=== PATIENT | female | born 1990 | race Hispanic/Latino ===

== ENCOUNTER → 2022-06-16 12:15 | Outpatient (CLI) | payer OTHER, SELFPAY ==
[2022-06-16 13:36] LABS: Add Manual Diff / Slide Review NO; Basophils Absolute Auto 0 /uL (0-100); Basophils Percent Auto 0.2 % (0-2); Eosinophils Absolute Auto 0 /uL (0-450); Eosinophils Percent Auto 0.4 % (2-4); Hematocrit 37.2 % (36-46); Hemoglobin 13.1 g/dL (12.0-16.0); Lymphocytes Absolute Auto 1900 /uL (1100-4500); Lymphocytes Percent Auto 22.4 % (25-40); Mean Corpuscular HGB Conc 35.2 % (30-36); Mean Corpuscular Hemoglobin 29.8 PG (26-34); Mean Corpuscular Volume 84.7 fL (80-100); Monocytes Absolute Auto 500 /uL (0-900); Monocytes Percent Auto 5.5 % (3-14); Neutrophils Absolute Auto 6100 /uL (1500-7000); Neutrophils Percent Auto 71.5 % (50-75); Platelet Count 290 X10^3/uL (150-400); Red Blood Cell Count 4.39 X10^6/uL (4.0-5.2); Red Cell Distribution Width 13.8 % (11.6-14.8); White Blood Cell Count 8.5 X10^3/uL (4.5-11.0)
[2022-06-16 13:40] LABS: Appearance Urine UA CLEAR; Bilirubin Urine UA NEGATIVE (NEGATIVE); Color Urine UA YELLOW; Glucose Urine UA NEGATIVE (Negative); Ketones Urine UA NEGATIVE (NEGATIVE); Leukocyte Esterase Urine UA 1+ (NEGATIVE); Nitrite Urine UA NEGATIVE (Negative); Occult Blood Urine UA NEGATIVE (Negative); Protein Urine UA NEGATIVE (Negative); Specific Gravity Urine UA <=1.005 (1.000-1.035); Urobilinogen Urine UA 0.2 E.U./dL (0.2)
[2022-06-16 13:48] LABS: Bacteria Urine None Seen; Culture Indicated Urine Cult Not Indicated; RBC Urine None Seen (0-5/HPF); Squamous Epithelial Cell Urine 5-10 /HPF (0-5/HPF); WBC Urine 1-5/HPF (0-5/HPF)
[2022-06-17 06:18] LABS: Varicella IgG Antibody 1357 index (Immune >165)
[2022-06-17 07:09] LABS: RPR Screen Non Reactive (Non Reactive)
[2022-06-17 16:09] LABS: Hepatitis B Surface Antigen NEGATIVE s/c (NEGATIVE)
[2022-06-17 16:28] LABS: HIV 1 & 2 Ab/Ag 4th Gen Combo NEGATIVE (NEGATIVE); Hep C Virus Ab w/Reflex Quant NEGATIVE s/c (NEGATIVE)
== END ==
PROVIDERS: Referring Provider Obstetrics & Gynecology; Visit Provider Obstetrics & Gynecology
DX: Z34.01 Encounter for supervision of normal first pregnancy, first trimester (principal); Z36.0 Encounter for antenatal screening for chromosomal anomalies
CPT/HCPCS: 36415; 80055; 81003; 81015; 86787; 86803; 86850; 86900; 86901; 87086; 87147; 87389

== ENCOUNTER → 2022-07-27 14:08 | Outpatient (CLI) | payer OTHER, SELFPAY ==
[2022-07-29 20:52] LABS: AFP Value 26.6 ng/mL (.); Gest Age on Col Date 16.9 weeks (.); Insulin Dep Diabetes No (.); OSBR Risk 1IN 10000 (.); Results Report (.); Test Results *Screen Negative* (.)
== END ==
PROVIDERS: Referring Provider Obstetrics & Gynecology; Visit Provider Obstetrics & Gynecology
DX: Z34.02 Encounter for supervision of normal first pregnancy, second trimester (principal); Z3A.16 16 weeks gestation of pregnancy
CPT/HCPCS: 36415; 82105

== ENCOUNTER → 2022-08-19 08:55 | Outpatient (CLI) | payer OTHER, SELFPAY ==
--- NOTE | 2022-08-19 08:55 | DI.US.S_ITS ---
PROCEDURE: US OB >= 14 WEEKS FETUS INDICATIONS: ANATOMY OUTSIDE/PRIOR DATING DATA: Last menstrual period (LMP): Not available. LMP-based estimated date of delivery (LALIT): Not of the. First dating scan (date and location): 05/25/2022. Estimated date of delivery (LALIT) from first dating scan: 01/06/2023. The calculations are made using the working LALIT of 01/06/2023. TECHNIQUE: Real-time scanning was performed of the fetus, with image documentation and biometric measurements. Endovaginal scanning: Not performed COMPARISON: [facility], , OB <= 14 WEEKS FETUS, 06/29/2022, 12:12. [facility], , OB <= 14 WEEKS FETUS, 05/25/2022, 11:40. FINDINGS: General: A single living intrauterine gestation is present. Presentation: Vertex. Placenta: Placental position is posterior , without previa. Amniotic fluid index: 17.0 cm, normal range is 5-24 cm. Single deepest vertical pocket is 5.4 cm. heart rate: 145 beats per minute. Maternal cervical canal: 4 point cm long. Normal lower limit is 2.5 cm. biometrics: Biparietal diameter: 19 weeks 5 days Head circumference: 19 weeks 4 days Abdominal circumference: 20 weeks 5 days Femur length: 20 weeks 3 days Clinically estimated gestational age: 20 weeks 0 day Composite gestational age from present scan: 20 weeks 1 day Estimated weight and percentile: 355 g; 72% Anatomic survey: Neuro: Ventricles are non-dilated at less than 10 mm. Cisterna magna is normal at 3-11 mm. Cerebellum is normal in size and morphology. Nuchal skin fold: Normal at less than 6 mm between 14-21 weeks gestational age. Face: Nose and lips, facial profile are normal. Spine: No evidence for spina bifida. Heart: 4-chambered heart is present, with normal ventricular outflow tracts. Diaphragm: Diaphragm is intact. Stomach: Left-sided stomach is present. Kidneys: No hydronephrosis. Normal is less than 5 mm in 2nd trimester, less than 7 mm in 3rd trimester. Cord: 3-vessel cord has orthotopic insertion. Bladder: Normal in size. Extremities: All 4 extremities identified. IMPRESSION: 1. A single living intrauterine gestation with appropriate interval growth. 2. Normal anatomic survey. We strive to produce accurate, complete, and clear reports of imaging services. To assist us in improving patient care, this report was composed using standard report templates and voice recognition software. Therefore, it may contain abnormal punctuation, insertions and/or omissions. Occasional wrong-word or sound-alike substitutions may occur. Though we review the report and make efforts to correct it, we do recommend that the report be read carefully in proper context to recognize any text inaccuracies. Dictated by: Trina Wang M.D. on 08/19/2022 at 12:37 Approved by: Trina Wang M.D. on 08/19/2022 at 13:26
== END ==
PROVIDERS: Referring Provider Obstetrics & Gynecology; Visit Provider Obstetrics & Gynecology
DX: Z34.02 Encounter for supervision of normal first pregnancy, second trimester (principal); Z3A.20 20 weeks gestation of pregnancy
CPT/HCPCS: 76811

== ENCOUNTER → 2022-10-01 09:17 | Outpatient (CLI) | payer OTHER, SELFPAY ==
[2022-10-01 12:09] LABS: Hematocrit 34.2 % (36-46); Hemoglobin 11.6 g/dL (12.0-16.0)
[2022-10-01 12:17] LABS: GTT (PREG) 1 Hour PP 50gm Dose 99 mg/dL (76-139)
== END ==
PROVIDERS: Referring Provider Obstetrics & Gynecology; Visit Provider Obstetrics & Gynecology
DX: Z34.02 Encounter for supervision of normal first pregnancy, second trimester (principal); Z3A.26 26 weeks gestation of pregnancy
CPT/HCPCS: 36415; 82950; 85014; 85018

== ENCOUNTER 2022-11-09 14:38 | Outpatient (CLI) | payer OTHER, SELFPAY ==
--- NOTE | 2022-11-09 15:29 | PM.OBTRLD ---
Visit Information Visit Information Date of evaluation: 11/09/22 Primary OB Provider: Ayesha Buckley On-call OB Provider: Gayatri Thomas Comments/Additional reasons for admission: 32yo at 31w5d here for decreased movement and vaginal bleeding. Pt reports single episode of pink tinging on her tissue after wiping when using the restroom. She denies any cramping/contractions, LOF. She also reports feeling her baby move less often in the past 24hrs. [facility] Medical History (Updated 11/10/22 @ 10:21 by Gayatri Thomas MD) Healthy adult Shingles Surgical History (Updated 06/19/22 @ 19:48 by Dixie Wilson) Anesthesia [place] teeth extracted (~01/2014) Family History (Updated 06/19/22 @ 19:51 by Dixie Wilson) Grandmother Ovarian cancer Grandmother Hypertension Stroke Grandfather Hypertension Diabetes mellitus Father Borderline hypertension Mother History of cholecystectomy Sister History of cholecystectomy Social History marital status: number of children: 0 household members: spouse lives independently: Yes housing: house pets and animals: Yes (1 small dog) education level: college occupational status: student current occupational exposures/hazards: No special dixie needs: No travel history: recent seatbelt use: always water heater temp set < 120 deg: No (will check and adjust) working smoke detector in home: Yes fire extinguisher in home: Yes carbon monox detector in home: Yes firearms in home: Yes firearms unloaded and locked: Yes do you feel safe at home: Yes Smoking Status: Never smoker second hand exposure: No alcohol intake: former substance use type: does not use during the past year weight has: increased > 10 lbs well-balanced diet: daily or most days daily servings fruits/ve-4 caffeine: Yes (aware of 200mg limit) Type(s) of exercise: walking frequency: 3-4 times per week Evaluation Evaluation Baseline heart rate: 140 Variability: Moderate (11-25) monitor accelerations: Present Monitor Decelerations: Absent Cervical dilation (cm): 0 Cervical effacement (%): 0 Comments: Very small intermittent and irregular contractions, palpating mild and not felt by patient Diagnosis, Plan/Disposition Final Diagnosis (1) Decreased movement: Status: Acute Plan/Disposition Plan: 32 yo at 31w5d here for decreased movement and single episode of light vaginal bleeding. She did use the restroom while in L&D without any blood present. Nursing had given report of > 35wks when presented to this provider, and so cervix was checked by nursing and was closed. No evidence of ongoing active bleeding, therefore ultrasound not obtained. NST reactive. No significant contractions on monitoring or palpated. Pt is stable of d/c home. OB Disposition: home
== END 2022-11-09 15:41 | disposition home or self-care (01) ==
LOC: LABOR 15:40 → OB 11-11 13:49
PROVIDERS: Referring Provider Obstetrics & Gynecology; Visit Provider Obstetrics & Gynecology
DX: O36.8130 Decreased fetal movements, third trimester, not applicable or unspecified (principal); Z3A.31 31 weeks gestation of pregnancy
CPT/HCPCS: 59025; G0378; G0379

== ENCOUNTER 2023-01-04 10:28 | Outpatient (CLI) | payer OTHER, SELFPAY | END 2023-01-04 11:13 | disposition home or self-care (01) | LOC: LABOR 10:47 → OB 01-10 06:05 | PROVIDERS: Referring Provider Obstetrics & Gynecology; Visit Provider Obstetrics & Gynecology | DX: Z34.03 Encounter for supervision of normal first pregnancy, third trimester (principal); Z3A.39 39 weeks gestation of pregnancy | CPT/HCPCS: 59025; G0378; G0379 ==

== ENCOUNTER 2023-01-06 20:25 | Outpatient (CLI) | payer OTHER, SELFPAY ==
[2023-01-06] MEDS: MORPHINE 4 MG/ML INJ IM (21:35)
== END 2023-01-06 21:35 | disposition home or self-care (01) ==
LOC: LABOR 21:37 → OB 02-07 13:02
PROVIDERS: Referring Provider Obstetrics & Gynecology; Visit Provider Obstetrics & Gynecology
DX: O48.0 Post-term pregnancy (principal); Z3A.40 40 weeks gestation of pregnancy
CPT/HCPCS: 59050; 84112; 96372; G0378; G0379; J2270

== ENCOUNTER 2023-01-07 06:33 | Inpatient (IN) | payer OTHER, SELFPAY ==
[2023-01-07 08:48] LABS: Add Manual Diff / Slide Review NO; Basophils Absolute Auto 0 /uL (0-100); Basophils Percent Auto 0.1 % (0-2); Eosinophils Absolute Auto 0 /uL (0-450); Eosinophils Percent Auto 0.1 % (2-4); Hematocrit 36.1 % (36-46); Hemoglobin 12.2 g/dL (12.0-16.0); Lymphocytes Absolute Auto 1400 /uL (1100-4500); Lymphocytes Percent Auto 7.5 % (25-40); Mean Corpuscular HGB Conc 33.7 % (30-36); Mean Corpuscular Hemoglobin 28.1 PG (26-34); Mean Corpuscular Volume 83.3 fL (80-100); Monocytes Absolute Auto 700 /uL (0-900); Monocytes Percent Auto 3.9 % (3-14); Neutrophils Absolute Auto 16400 /uL (1500-7000); Neutrophils Percent Auto 88.4 % (50-75); Platelet Count 276 X10^3/uL (150-400); Red Blood Cell Count 4.33 X10^6/uL (4.0-5.2); Red Cell Distribution Width 14.6 % (11.6-14.8); White Blood Cell Count 18.5 X10^3/uL (4.5-11.0)
[2023-01-07] MEDS: LACTATED RINGERS 1,000 ML 100 ML IV ×2 (08:48→14:00)
[2023-01-07] MEDS: AMPICILLIN 2,000 MG in SODIUM CHLORIDE 0.9% 100 ML 200 MG IV (08:48)
[2023-01-07] MEDS: FENT 2MCG/ML BUPIV 0.125% EPI 200 MCG/100 ML PLAST..BAG 8 MCG EPIDURAL ×2 (09:20→16:30)
[2023-01-07] MEDS: OXYTOCIN PREMIX 30 UNIT/500 ML PLAST..BAG IV (10:27)
[2023-01-07 10:51] VITALS: BP 114/78
[2023-01-07] MEDS: AMPICILLIN 1,000 MG in SODIUM CHLORIDE 0.9% 100 ML 200 MG IV ×3 (12:35→20:33)
--- NOTE | 2023-01-07 12:35 | PM.OBHP.1 ---
OB HPI Date/Time Date of admission: 01/07/23 History of Present Condition Chief complaint: Labor : 1 Para: 0 Estimated Date of Delivery: 01/06/23 Estimated Gestational Age (weeks): 40.1 Narrative: Olga Ahumada is a 32 year old female who presents in prodromal labor. Was seen on 01/05/2023 and 1.5/-2. arrived on L+D with c/o contractions which are increasing in frequency / intensity +FM no pre-e symptoms no LOF or VB/VD +contraction pain History of Present care: good care Dating criteria: LMP confirmed by 1st trimester US Obstetrical complications: none Medical complications: none Preadmission Labs Blood type: O (+) positive -: Antibody screen: negative, Cystic fibrosis screen: negative, GBS status: positive, HBsAG: negative, HIV: negative, HSV 1: unknown, HSV 2: unknown and RPR/VDLR: negative -: Chlamydia screen: not detected and Gonorrhea screen: not detected -: Rubella: immune and Varicella: immune HCT: 37.2 HCAB: negative Cell-free DNA: low risk, female Urine: WNL 1 hr GTT: 99 Prior (ies) History: G1 Evaluation Evaluation Variability: Average (6-10) monitor accelerations: Present Monitor Decelerations: Absent Status: Category l Dilation (cm): 4 Effacement (%): 100 Dilation: 3-4 cm station: -1 Position of cervix: mid Consistency: soft [facility] Medical History (Updated 01/04/23 @ 11:12 by Ayesha Buckley MD) Healthy adult Shingles Surgical History (Updated 06/19/22 @ 19:48 by Dixie Wilson) Anesthesia [place] teeth extracted (~01/2014) Family History (Updated 06/19/22 @ 19:51 by Dixie Wilson) Grandmother Ovarian cancer Grandmother Hypertension Stroke Grandfather Hypertension Diabetes mellitus Father Borderline hypertension Mother History of cholecystectomy Sister History of cholecystectomy Social History marital status: number of children: 0 household members: spouse lives independently: Yes housing: house pets and animals: Yes (1 small dog) education level: college occupational status: student current occupational exposures/hazards: No special dixie needs: No travel history: recent seatbelt use: always water heater temp set < 120 deg: No (will check and adjust) working smoke detector in home: Yes fire extinguisher in home: Yes carbon monox detector in home: Yes firearms in home: Yes firearms unloaded and locked: Yes do you feel safe at home: Yes Smoking Status: Never smoker second hand exposure: No alcohol intake: former substance use type: does not use during the past year weight has: increased > 10 lbs well-balanced diet: daily or most days daily servings fruits/ve-4 caffeine: Yes (aware of 200mg limit) Type(s) of exercise: walking frequency: 3-4 times per week Meds Home Medications and Allergies Home Medications Medication Instructions Recorded Confirmed Type cholecalciferol (vitamin D3) 50 50 mcg PO DAILY 05/18/22 01/07/23 History mcg (2,000 unit) capsule cyanocobalamin (vitamin B-12) 1,000 mcg PO DAILY 05/18/22 01/07/23 History 1,000 mcg capsule prenat.vits,carlos,[id number] 1 tab PO DAILY 05/18/22 01/07/23 History Allergies Allergy/AdvReac Type Severity Reaction Status Date / Time No Known Allergies Allergy Verified 01/06/23 13:00 Review of Systems Review of Systems ROS: Yes All systems reviewed with the patient and are negative except as otherwise documented Constitutional Constitutional: Reports as per HPI Cardiovascular Cardiovascular: Reports as per HPI Gastrointestinal Gastrointestinal: Reports as per HPI Genitourinary Genitourinary: Reports system reviewed and no additional complaints, except as documented OB Exam Narrative Exam Narrative: 4/100/-2, soft, midposition HENMT Head: normal to inspection Resp Effort & Inspection: normal respiratory effort and able to speak in complete sentences Cardio Rate: regular rate Rhythm: regular rhythm Extremities Lower extremity: Yes normal to inspection GI Inspection: normal to inspection OB/External & Speculum: deferred Presentation: vertex Estimated Weight (lbs): 7 Objective Labs 01/07/23 08:30 Labs: Laboratory Results - last 24 hr 01/07/23 01/07/23 08:30 08:30 WBC 18.5 H RBC 4.33 Hgb 12.2 Hct 36.1 MCV 83.3 MCH 28.1 MCHC 33.7 RDW 14.6 Plt Count 276 Neut % (Auto) 88.4 H Lymph % (Auto) 7.5 L [place] % (Auto) 3.9 Eos % (Auto) 0.1 L Baso % (Auto) 0.1 Neut # (Auto) 40328 H Lymph # (Auto) 1400 [place] # (Auto) 700 Eos # (Auto) 0 Baso # (Auto) 0 Blood Type O Positive Antibody Screen Negative Assessment and Plan Assessment and Plan Assessment and Plan narrative: Admit to Labor and Delivery Admission labs Epidural when desired GBS prophylaxis per protocol until delivery SCDs when in bed Continuous maternal and monitoring Anticipate Time Spent with Patient Total time spent with greater than 50% in coordination of care (as documented) at patient's floor/unit and/or counseling patient:: 15-24 minutes
[2023-01-07] MEDS: diphenhydrAMINE 25 MG TABLET PO (17:28)
[2023-01-07] MEDS: FENT 2MCG/ML BUPIV 0.125% EPI 200 MCG/100 ML PLAST..BAG 12 MCG EPIDURAL (21:30)
--- NOTE | 2023-01-07 22:44 | PM.OBPNLAB ---
Date/Time Date Patient Seen: 01/07/23 Time Patient Seen: 13:30 Pain Control Pain control: tolerating well and epidural Pelvic Exam Dilation (cm): 4 Effacement (%): 100 station: -1 Amniotic membrane status: Ruptured Comments: scant, blood tinged fluid Contractions Contractions on admission: regular Monitor mode: External Contraction pattern: Regular Status status: Category l Monitor Accelerations: Present Monitor Decelerations: Absent Monitor Variability: Moderate Assessment and Plan Assessment: active labor and induction ongoing Plan: continuous present management
--- NOTE | 2023-01-07 22:46 | PM.OBPNLAB ---
Date/Time Date Patient Seen: 01/07/23 Time Patient Seen: 18:30 Pain Control Pain control: tolerating well and epidural Pelvic Exam Dilation (cm): 5 Effacement (%): 100 station: -1 Amniotic membrane status: Ruptured Comments: IUPC placed without difficulty Contractions Contractions on admission: regular Monitor mode: External Contraction pattern: Regular Contraction phase: Contraction Contraction intensity: Moderate Status status: Category l Monitor Accelerations: Present Monitor Decelerations: Absent Monitor Variability: Moderate Assessment and Plan Assessment: active labor Plan: continuous present management Comments: discussed with patient that station has remained the same, and cervical swelling noted. benadryl given, peanut ball used. epidural to be redosed by anesthesia.
[2023-01-08] MEDS: AMPICILLIN 1,000 MG in SODIUM CHLORIDE 0.9% 100 ML 200 MG IV ×2 (00:32→04:49)
[2023-01-08] MEDS: LACTATED RINGERS 1,000 ML 100 ML IV (02:24)
[2023-01-08] MEDS: FENT 2MCG/ML BUPIV 0.125% EPI 200 MCG/100 ML PLAST..BAG 12 MCG EPIDURAL (02:24)
[2023-01-08] MEDS: OXYTOCIN PREMIX 30 UNIT/500 ML PLAST..BAG 250 UNIT IV (06:15)
--- NOTE | 2023-01-08 06:47 | PM.OBPRVD ---
Events: Labor Augmentation Labor & Delivery Delivery date: 01/08/23 Cervical ripening method: none Induction method: per pitocin protocol Delivery augmentation: pitocin Delivery monitor: external FHT, external uterine and internal uterine Route of delivery: Episiotomy description: Right Mediolateral Delivery repair: vicryl Estimated blood loss (mL): 300 Anesthesia Type: Epidural Baby 1: Infant gender: Female Presentation: vertex Position: Occiput Posterior Placenta delivery description: Expressed Cord Vessel Description: 3 Vessels and Nuchal Cord (nuchal x 2 reduced at time of delivery) score (1 min): 4 score (5 min): 6 score (10 min): 8 weight: 8 lb Narrative: called to room for delivery with patient 10/100/+2. descent noted with maternal pushing. Following delivery of the head, turtle sign was noted, and shoulder dystocia was identified. Sayda, Suprapubic pressure was applied, and delivery of posterior arm was attemped. secondary to minimal access, RML epsiotomy was performed, and subsequent downward traction applied, and anterior shoulder (left) was delivered and was delivered and cord clamped immediately. Infant handed off to pediatrics team. placenta delivered spontaneously Total time of shoulder dystocia: 110s APGARS 6/8 weight: 8lbs infant received PPV, and CPAP for resuscitation cord ph: 7.37 base excess: -5 Infant moving both arms, without evidence clavicular or humeral fracture. RML repaired in two layers, in the usual fashion. Plan for aftercare: Routine care
[2023-01-08 06:54] VITALS: PULSE 189; RESP 60; O2SAT 95
[2023-01-08 13:32] VITALS: TEMP 36.6
[2023-01-08] MEDS: IBUPROFEN 600 MG TABLET PO ×2 (13:32→23:48)
[2023-01-08] MEDS: DERMOPLAST SPRAY 20% 60 ML 1 SPRAY TOP (13:32)
[2023-01-09 06:39] LABS: Hemoglobin 8.7 g/dL (12.0-16.0); Red Cell Distribution Width 14.9 % (11.6-14.8); White Blood Cell Count 20.6 X10^3/uL (4.5-11.0)
[2023-01-09 06:51] LABS: Add Manual Diff / Slide Review NO; Basophils Absolute Auto 0 /uL (0-100); Basophils Percent Auto 0.2 % (0-2); Eosinophils Absolute Auto 200 /uL (0-450); Eosinophils Percent Auto 1.1 % (2-4); Hematocrit 26.1 % (36-46); Lymphocytes Absolute Auto 3500 /uL (1100-4500); Lymphocytes Percent Auto 17.2 % (25-40); Mean Corpuscular HGB Conc 33.3 % (30-36); Mean Corpuscular Volume 83.9 fL (80-100); Monocytes Absolute Auto 1000 /uL (0-900); Monocytes Percent Auto 4.9 % (3-14); Neutrophils Absolute Auto 15700 /uL (1500-7000); Neutrophils Percent Auto 76.6 % (50-75); Platelet Count 231 X10^3/uL (150-400)
--- NOTE | 2023-01-09 07:03 | PM.OBDS.1 ---
Discharge Providers Provider Date of admission: 01/07/23 06:33 Discharge Date: 01/09/23 Primary care physician: Benjamin BAY Provider Consults: 01/07/23 08:16 Consult to Anesthesiology Urgent Comment: Consulting Provider: Anesthesiologist Reason for consultation: Epidural Has provider been notified: No 01/09/23 06:44 Consult to Customer Experience Consultant Routine Comment: Discharge provider: Shantelle Win MD Summary Hospital Course Date Patient Seen: 01/09/23 Time Patient Seen: 07:00 Diagnoses: Labor vaginal delivery shoulder dystocia Hospital Course: 32yo G1 now P1 admitted at 40+ weeks for labor, augmented with pitocin. Patient had a vaginal delivery with shoulder dystocia. please see delivery note for complete details. course was unremarkable. On day of discharge, she was ambulating, voiding, tolerating regular diet. breast feeding Peripartum Data Infant Delivery Method: Natural Vaginal Episiotomy description: Right Mediolateral Discharge Diagnosis (1) Vaginal delivery: Status: Acute Problem Details: complicated by 110s shoulder dystocia (2) GBS bacteriuria: Status: Acute Problem Details: adequately treated (3) Encounter for supervision of normal first , first trimester: Status: Acute Status at Discharge Cognitive/behavioral status at discharge: oriented Functional status at discharge: independent ambulation Overall status at discharge: patient is back to baseline Time Spent with Patient Time attestation: Total time spent providing and/or coordinating discharge services: Time spent: Greater than 30 minutes Specific discharge activities: nothing per vagina OK to shower daily no tub baths Objective Labs 01/09/23 06:26 Labs: Laboratory Results - last 24 hr 01/09/23 06:26 WBC 20.6 H RBC 3.10 L Hgb 8.7 L Hct 26.1 L MCV 83.9 MCH 28.0 MCHC 33.3 RDW 14.9 H Plt Count 231 Neut % (Auto) 76.6 H Lymph % (Auto) 17.2 L [place] % (Auto) 4.9 Eos % (Auto) 1.1 L Baso % (Auto) 0.2 Neut # (Auto) 31614 H Lymph # (Auto) 3500 [place] # (Auto) 1000 H Eos # (Auto) 200 Baso # (Auto) 0 Exam Const General: cooperative Chest Chest: normal inspection of the chest Breast inspection: normal inspection of the breasts Resp Effort & Inspection: normal respiratory effort Cardio Rate: regular rate Rhythm: regular rhythm GI Inspection: normal to inspection External Female Exam: normal external appearance Bimanual Exam- Vagina & Uterus: other (Fundus 2cm below umbilicus ) Discharge Plan Discharge Plan Patient Disposition: Home Discharge orders & Medications Prescriptions: New acetaminophen 325 mg Tablet 650 mg PO Q6HR PRN (Reason: Pain, Mild (1-3)) 7 Days Qty: 30 0RF ibuprofen 600 mg Tablet 600 mg PO Q6HR PRN (Reason: Pain, Mild (1-3)) 7 Days Qty: 30 0RF Continued prenat.vits,carlos,[id number] Tablet 1 tab PO DAILY cyanocobalamin (vitamin B-12) 1,000 mcg capsule 1,000 mcg PO DAILY cholecalciferol (vitamin D3) 50 mcg (2,000 unit) capsule 50 mcg PO DAILY Follow up/Referrals: Ayesha Buckley MD [Physician] - Provider,Benjamin BAY [Primary Care Provider] - Shantelle Win MD [Physician] - (handwritten instructions provided on discharge packet for follow up care ) Diet/Activity/Treatments Diet: Diet as Tolerated Activity: nothing per vagina no heavy lifting no tub baths Visit Report/Discharge Packet Instructions: DI for Labor and Delivery, Vaginal Stand Alone Forms: Discharge: Care, Patient Portal/API, Stroke Signs & Symptoms Discharge Data Primary Care Provider: Benjamin Soto Attending Provider: Ayesha Buckley Admit Date/Time: 01/07/23 06:33 Discharges patient from system. Discharge Date/Time: 01/09/23 13:22
[2023-01-09] MEDS: PRENATAL VIT,CALC/IRON/FOLIC 1 TABLET 1 TAB PO (09:01)
[2023-01-09] MEDS: DOCUSATE 100 MG CAPSULE PO (09:01)
[2023-01-09] MEDS: FERROUS SULFATE 325 MG TABLET PO (09:02)
[2023-01-09] MEDS: IBUPROFEN 600 MG TABLET PO (09:02)
[2023-01-09 11:35] VITALS: BP 104/66; PULSE 102; RESP 16; TEMP 36.7
== END 2023-01-09 13:22 | disposition home or self-care (01) | DRG 807 ==
PROVIDERS: Obstetrics & Gynecology; Admitting Provider Obstetrics & Gynecology; Referring Provider Obstetrics & Gynecology; Visit Provider Obstetrics & Gynecology
DX: O99.824 Streptococcus B carrier state complicating childbirth (principal); Z37.0 Single live birth; O66.0 Obstructed labor due to shoulder dystocia; Z3A.40 40 weeks gestation of pregnancy
CPT/HCPCS: 36415; 59050; 59400; 59409; 85025; 86850; 86900; 86901; G0378; G0379; J0290; J2590